=== PATIENT | female | born 1955 | race Caucasian/White ===

== ENCOUNTER 2018-09-10 09:41 | Inpatient (IN) | payer OTHER, MEDICARE ==
[~2018-09-10] VITALS: Ht 162.6 cm; Wt 71.2 kg
--- OUTSIDE RECORDS SUMMARY | 2018-09-10 09:45 | XMS REPORT | Clinical Summary ---
Author Author [facility] Address Unknown Phone Unavailable Care Team Providers Care Dumpcart Driver Name Role Phone Asked, No Pcp PCP Unavailable Allergies Active Allergy Reactions Severity Noted Date Comments Codeine Hives High 03/24/2018 And sOB Phenobarbital Low 03/25/2018 Hives Current Medications Prescription Sig. Disp. Refills Start End Date Status Date levothyroxine (SYNTHROID, Take 100 mcg by mouth Active LEVOXYL) 100 mcg tablet daily. FLUoxetine (PROzac) 20 MG Take 20 mg by mouth Active capsule daily. 2 tabs gabapentin (NEURONTIN) Take 300 mg by mouth Active 300 mg capsule nightly. 3 caps clonIDINE HCl (CATAPRES) Take 0.2 mg by mouth Active 0.2 MG tablet daily. montelukast (SINGULAIR) Take 10 mg by mouth Active 10 mg tablet nightly. simvastatin (ZOCOR) 80 MG Take 80 mg by mouth Active tablet nightly. omeprazole (PriLOSEC) 20 Take 20 mg by mouth Active MG capsule nightly. 2 tabs meloxicam (MOBIC) 15 mg Take 15 mg by mouth Active tablet nightly. nebivolol (BYSTOLIC) 20 Take 20 mg by mouth Active mg tablet daily. albuterol sulfate Take 2.5 mg by Active (PROVENTIL) 2.5 mg/0.5 mL nebulization daily as solution for nebulization needed for wheezing. ipratropium (ATROVENT) Take 500 mcg by Active 0.02 % nebulizer solution nebulization daily as needed for wheezing or shortness of breath. Active Problems Not on file Encounters Date Type Specialty Care Team Description 03/25/2018 Hospital Procedural Cardiology Ismael Cortez MD SVT (supraventricular Encounter tachycardia) 03/25/2018 Anesthesia Procedural Cardiology David Goetz, Victorina WOOD HEEL CEMENTER 03/25/2018 Procedure Pass Procedural Cardiology 03/25/2018 Surgery Procedural Cardiology Ismael Cortez MD Ep complete ep study w ablation svt -using Cryo [09413 (CPT)] after 09/09/2017 Family History Medical History Relation Name Comments Heart attack Father Diabetes Mother Relation Name Status Comments Father Alive Mother Social History Tobacco Use Types Packs/Day Years Used Date Never Smoker Smokeless Tobacco: Never Used Alcohol Use Drinks/Week oz/Week Comments No Sex Assigned at Date Recorded Not on file Last Filed Vital Signs Vital Sign Reading Time Taken Blood Pressure 94/50 03/25/2018 7:00 PM CDT Pulse 58 03/25/2018 6:00 PM CDT Temperature 35.6 C (96 F) 03/25/2018 3:15 PM CDT Respiratory Rate 15 03/25/2018 6:00 PM CDT Oxygen Saturation 97% 03/25/2018 6:00 PM CDT Inhaled Oxygen - - Concentration Weight 67.8 kg (149 lb 7 oz) 03/25/2018 8:49 AM CDT Height 162.6 cm (5' 4") 03/25/2018 8:49 AM CDT Body Mass Index 25.65 03/25/2018 8:49 AM CDT Plan of Treatment Not on file Procedures Procedure Name Priority Date/Time Associated Diagnosis Comments EP COMPLETE EP STUDY W Routine 03/25/2018 SVT (supraventricular Results for this ABLATION SVT 2:12 PM CDT tachycardia) procedure are in the results section. [place] AN ELECTIVE Routine 03/25/2018 SUPRAGLOTTIC AIRWAY 1:23 PM CDT Procedure Note - David Montgomery CRNA - 03/25/2018 1:23 PM CDT Airway Date/Time: 03/25/2018 1:17 PM Performed by: DAVID MONTGOMERY Authorized by: ANITA JOSHI Location: OR Urgency: Elective Difficult Airway: No Anesthesio logist: ANITA JOSHI Resident/C GABRIELLA/AA: DAVID MONTGOMERY Performed by: resident/C GABRIELLA/AA Preoxygena radha with 100% O2: Yes C-spine Precaution s Maintained Throughout : Yes Mask Ventilatio n: Easy mask Final Airway Type: Supraglott ic airway Final LMA: I-Gel LMA Size: 4 Number of Attempts at Approach: 1 Atraumati c intubation , teeth and lips intact, LMA secured via tape and connected to the OR vent. Patient tolerated intubation well. TYPE AND SCREEN STAT 03/25/2018 Results for this 9:24 AM CDT procedure are in the results section. after 09/09/2017 Results * Cv electrophysiology procedure (03/25/2018 2:12 PM) Narrative Performed At [facility] REASON FOR PROCEDURE: Paroxysmal supraventricular tachycardia PROCEDURES PERFORMED: 1. Catheter ablation for supraventricular tachycardia. 2. 3D catheter mapping. 3. Left atrial coronary sinus pacing and recording ANESTHESIA: MAC COMPLICATIONS:None. ESTIMATED BLOOD LOSS:10 mL. DESCRIPTION OF PROCEDURE: The patient was prepped in the usual sterile fashion. The right femoral vein was accessed x 3 and sheaths were advanced in the right femoral vein. A decapolar catheter was placed in the coronary sinus and quadripolar catheters were placed in the right ventricle, His and a decapolar catheter placed in the coronary sinus. At baseline, the patient was in sinus rhythm with a cycle length of 1100 milliseconds.HV 50ms and dual AV carline physiology was demonstrated.The fast pathway ERP was 360@600 ms. With extrastim we induced PSVT with a long AH interval.The SVT cycle length was 360 ms, and the 3D mapping demonstrated concentric atrial activation.The septal VA time was 0ms.Entrainment from the ventricle demonstrated a VAV response.This was diagnostic for typical AV carline reentry. The His catheter was exchanged for the 6mm tip cryoablation catheter and several lesions were administered at the slow pathway area resulting in elimination of slow AV pathway conduction.The catheters and sheaths were exchanged for short sheaths, which were pulled in holding area. CONCLUSIONS: 1. Typical AV carline reeentrant tachycardia. 2. Successful cryoablation of the slow AV pathway 3. There were no complications. Performing Organization Address City/State/Zipcode Phone Number [facility] [address] [place] [address] * Type and screen (03/25/2018 9:24 AM) ABO grouping O [facility] DEPARTMENT OF PATHOLOGY AND GENOMIC MEDICINE Rh type POS [facility] DEPARTMENT OF PATHOLOGY AND GENOMIC MEDICINE Antibody screen (gel) NEG [facility] DEPARTMENT OF PATHOLOGY AND GENOMIC MEDICINE Specimen Blood Performing Organization Address City/[facility]/Zipcode Phone Number [facility] DEPARTMENT OF [address] [place] [phone] PATHOLOGY AND GENOMIC MEDICINE after 09/09/2017 Insurance Payer Benefit Subscriber ID Type Phone Address Plan / Group AETNA AETNA xxxxxxxxxx HMO HMO,POS,EP O, MC/EC [id number] [id number]
[2018-09-10] MEDS ORDERED: VANCOMYCIN 1GM/NS 250 ML 250 ML IV ONE (10:30)
[2018-09-10 10:37] LABS: EOSINOPHILS # (AUTO) 0.2 (0.0-0.4); EOSINOPHILS % 5.8 % (0.0-6.0); HEMATOCRIT 38.4 % (34.2-44.1); HEMOGLOBIN 12.7 g/dL (12.0-16.0); LYMPHOCYTES # (AUTO) 1.3 (1.0-3.2); LYMPHOCYTES % 33.5 % (18.0-39.1); MEAN CORPUSCULAR HEMOGLOBIN 31.1 pg (28-32); MEAN CORPUSCULAR HGB CONC 33.1 g/dL (31-35); MEAN CORPUSCULAR VOLUME 94.1 fL (81-99); MONOCYTES # (AUTO) 0.5 (0.2-0.8); MONOCYTES % 13.4 % (4.4-11.3); NEUTROPHILS # (AUTO) 1.7 (2.1-6.9); NEUTROPHILS % 45.3 % (38.7-80.0); PLATELET COUNT 297 x10e3/uL (140-360); RED BLOOD COUNT 4.08 x10e6/uL (3.6-5.1); RED CELL DISTRIBUTION WIDTH 11.9 % (11.7-14.4)
[2018-09-10 10:59] LABS: ALBUMIN 4.3 g/dL (3.5-5.0); ALBUMIN/GLOBULIN RATIO 1.3 (0.8-2.0); ANION GAP 17.3 mmol/L (8-16); CALCIUM 9.6 mg/dL (8.4-10.2); CREATININE, SERUM 0.96 mg/dL (0.57-1.11); POTASSIUM 4.3 mmol/L (3.5-5.1)
[2018-09-10] MEDS ORDERED: GADOBENATE DIMEGLUMINE 1 ML IV ONE (11:07)
[2018-09-10] MEDS ORDERED: PRILOSEC OTC20 MG PO (11:08)
[2018-09-10] MEDS ORDERED: SENNA LAXATIVE8.6 MG PO (11:08)
[2018-09-10] MEDS ORDERED: SYNTHROID100 MCG PO (11:08)
[2018-09-10] MEDS ORDERED: PROZAC20 MG PO (11:08)
[2018-09-10] MEDS ORDERED: MELOXICAM7.5 MG PO (11:08)
[2018-09-10] MEDS ORDERED: MULTI-VITAMIN1 EACH PO (11:08)
[2018-09-10] MEDS ORDERED: BYSTOLIC10 MG PO (11:08)
[2018-09-10] MEDS ORDERED: SIMVASTATIN80 MG PO (11:08)
[2018-09-10] MEDS ORDERED: IPRATROPIU0.2 MG/1 M NEB (11:08)
[2018-09-10] MEDS ORDERED: MONTELUKAST SOD10 MG PO (11:08)
[2018-09-10] MEDS ORDERED: NEURONTIN300 MG PO (11:08)
[2018-09-10] MEDS ORDERED: OCUVITE TABLET1 EAC1 PO (11:08)
[2018-09-10] MEDS ORDERED: CLONIDINE HCL0.2 MG PO (11:08)
[2018-09-10] MEDS ORDERED: ALBUTEROL0.63 MG/3 INH (11:08)
[2018-09-10 11:24] LABS: ERYTHROCYTE SEDIMENTATION RATE 34 mm/hr (0-20)
--- OUTSIDE RECORDS SUMMARY | 2018-09-10 11:54 | XMS REPORT | Clinical Summary ---
Author Author [facility] Address Unknown Phone Unavailable Care Team Providers Care Person Investigator Name Role Phone Asked, No Pcp PCP [...] 03/25/2018 Anesthesia Procedural Cardiology David Goetz, Victorina RECEPTION AGENT 03/25/2018 Procedure Pass Procedural Cardiology 03/25/2018 Surgery Procedural Cardiology Ismael Cortez MD Ep complete ep study w ablation svt -using Cryo [31750 (CPT)] after 09/09/2017 Family History Medical History [...] tachycardia) procedure are in the results section. MS AN ELECTIVE Routine 03/25/2018 SUPRAGLOTTIC AIRWAY 1:23 [...] complications. Performing Organization Address City/State/Zipcode Phone Number [facility] [address] [place] [address] * Type and screen (03/25/2018 9:24 AM) ABO grouping O [facility] DEPARTMENT OF PATHOLOGY AND GENOMIC MEDICINE Rh type POS [facility] DEPARTMENT OF PATHOLOGY AND GENOMIC MEDICINE Antibody screen (gel) NEG [facility] DEPARTMENT OF PATHOLOGY AND GENOMIC MEDICINE Specimen Blood Performing Organization Address City/[facility]/Zipcode Phone Number [facility] DEPARTMENT OF [address] [place] [phone] PATHOLOGY AND GENOMIC MEDICINE after 09/09/2017 Insurance Payer Benefit Subscriber ID Type Phone Address Plan / Group AETNA AETNA xxxxxxxxxx HMO HMO,POS,EP O, MC/EC [id number] [id number]
[2018-09-10] MEDS ORDERED: DEXAMETHASONE SOD PHOS INJ 4 MG/ML VIAL ONE (12:37)
[2018-09-10] MEDS ORDERED: PROPOFOL IV EMULSION 10 MG/ML 20 ML VIAL ONE (12:37)
[2018-09-10] MEDS ORDERED: LIDOCAINE HCL 2% LOCAL INJ 5 ML SDV VIAL INJ ONE (12:37)
[2018-09-10] MEDS ORDERED: ONDANSETRON HCL INJ 2 MG/ML VIAL ONE (12:37)
[2018-09-10] MEDS ORDERED: DIPHENHYDRAMINE HCL INJ 50 MG/ML VIAL IV ONE (13:00)
[2018-09-10] MEDS: HYDROCODONE/APAP 10MG-325MG TAB PO PRN (13:14)
[2018-09-10] MEDS: CEFEPIME HCL 1 GM VIAL IV SCH ×2 (13:14→23:45)
--- NOTE | 2018-09-10 13:36 | Diagnostic Imaging Report ---
ADDENDUM #1 Right hand MRI with and without contrast. History: Recent surgery for small cyst removal 6 weeks ago. Osteomyelitis. Finger pain and swelling with redness. Comparison: None Technique: Multiplanar multisequence MRI of the right hand with and without intravenous contrast. 10 cc IV gadolinium contrast material was administered. Findings: There is abnormal soft tissue swelling/edema and abnormal contrast enhancement involving the distal aspect of the fourth finger. There is what may be a small skinfold on the palmar surface of the finger at the level of the middle portion of the middle phalanx. This is best seen on series 8 image 26. There may be a small underlying phlegmon/early abscess formation on the dorsal aspect of the fourth finger at the surgical site. There is bone marrow edema in the distal portion of the middle phalanx and in the proximal portion of the distal phalanx of the fourth finger as seen on sagittal image 6 and 7. This is worrisome for osteomyelitis. No ligamentous or tendon tear is seen. The visualized neurovascular bundles are intact. No acute fracture, dislocation or evidence of avascular necrosis. Impression: Findings consistent with cellulitis with possible small underlying phlegmon/early abscess formation on the dorsal aspect of the fourth finger at the surgical site. There is bone marrow edema at the distal aspect of the middle phalanx and proximal aspect of the distal phalanx worrisome for osteomyelitis. These findings were discussed with Dr. Lux by Dr. Browning on 09/15/2018 at 9:15 AM Signed by: Dr. Arron Browning M.D. on 09/15/2018 9:28 AM ORIGINAL REPORT Right hand MRI with and without contrast. History: Recent surgery for small cyst removal 6 weeks ago. Osteomyelitis. Finger pain and swelling with redness. Comparison: None Technique: Multiplanar multisequence MRI of the right hand with and without intravenous contrast. 10 cc IV gadolinium contrast material was administered. Findings: There is abnormal soft tissue swelling/edema and abnormal contrast enhancement involving the distal aspect of the fourth finger. There is an associated small skin defect on the palmar surface of the finger at the level of the middle portion of the middle phalanx. This is best seen on series 8 image 26. There is underlying phlegmon/early abscess formation measuring approximately 5.0 mm. There is bone marrow edema in the distal portion of the middle phalanx and in the rock small portion of the distal phalanx of the fourth finger as seen on sagittal image 6 and 7. This is worrisome for osteomyelitis. No ligamentous or tendon tear is seen. The visualized neurovascular bundles are intact. No acute fracture, dislocation or evidence of avascular necrosis. Impression: Findings consistent with cellulitis with small underlying phlegmon/early abscess formation on the palmar aspect of the fourth finger at the level of the distal portion of the middle phalanx. There is underlying bone marrow edema worrisome for osteomyelitis. Signed by: Dr. Arron Browning M.D. on 09/10/2018 1:33 PM
[2018-09-10 14:56] VITALS: BP 165/86
[2018-09-10 15:27] VITALS: BP 165/86
[2018-09-10 16:04] VITALS: BP 169/73
[2018-09-10] MEDS ORDERED: ACETAMINOPHEN 325 MG TAB PO PRN (16:30)
[2018-09-10] MEDS ORDERED: IPRATROPIUM BROMIDE 0.02% 2.5 ML NEB NEB PRN (16:45)
[2018-09-10] MEDS ORDERED: SODIUM CHLORIDE 0.9% 250ML 250 ML ONE (16:48)
--- NOTE | 2018-09-10 16:59 | Consultation ---
DATE OF CONSULTATION: September 10, 2018 INFECTIOUS DISEASE CONSULTATION REASON FOR CONSULTATION: Osteomyelitis of the right index finger. HISTORY OF PRESENT ILLNESS: This patient, who is a very pleasant 63-year-old female with history of hypertension, history of neuropathy, history of hypothyroidism, comes into the hospital. About a month or 6 weeks ago she had a lesion on her right index finger. She had a biopsy, but since then she has been having redness and swelling. She took oral antibiotic without any improvement. The patient went to see Dr. Lux. There was concern she has osteo. She was sent to the emergency room. In the emergency room she had an MRI which was positive for osteo. They plan for her to have surgery tomorrow with debridement in much of the joint. The patient, who is currently lying in bed comfortably, has no other complaints. PAST MEDICAL HISTORY: As above. PAST SURGICAL HISTORY: Denies. ALLERGIES: NKA. SOCIAL HISTORY: There is no smoking, drug abuse, alcohol use. FAMILY HISTORY: Otherwise unremarkable. REVIEW OF SYSTEMS: HEENT: Negative. PULMONARY: Negative. CARDIAC: Negative. : Negative. SKIN: There are no other rashes. ALL OTHER SYSTEMS: Within normal limits. LABORATORY DATA: White count 3.82. Hemoglobin 12. Hematocrit 38. Her sodium 140, potassium 4.3, creatinine 0.96. PHYSICAL EXAMINATION: GENERAL: She is currently alert, oriented, does not seem to be in acute distress. VITALS: Stable. Currently afebrile. HEENT: She does not appear icteric. NECK: Supple. CHEST: Clear. HEART: S1, S2. No S3, no S4, no murmur. ABDOMEN: Soft. Bowel sounds present. No tenderness. EXTREMITIES: No edema. The right index finger, there is erythema and edema on the end of the distal third. IMPRESSION: Osteomyelitis of the right index finger after a biopsy. Will put her on vancomycin 1 gram q.12. Will obtain sed rate and C-reactive protein. Obtain a PICC line. Will need 8 weeks of IV antibiotic, weekly CBC, weekly chem panel, weekly vancomycin trough. Discussed with the patient. Will follow with you. Discussed with Internal Medicine. Discussed with Dr. Lux. Job#: [id number] EV
[2018-09-10] MEDS: MORPHINE SULFATE INJ 4 MG/ML INJ IV PRN ×2 (17:03→22:11)
[2018-09-10] MEDS: VANCOMYCIN 1GM/NS 250 ML 250 ML IV SCH (17:29)
--- NOTE | 2018-09-10 17:31 | History and Physical ---
CHIEF COMPLAINT: Right finger pain concerning for osteomyelitis. HISTORY OF PRESENT ILLNESS: This is a 63-year-old female who reports over the last 1 month has been having worsening pain in the right ring finger that has been ongoing for a significant period of time. She reports she initially had a cyst that was there present and was eventually removed but with no scrapings and progressively got worse over time over the last 1 month. She reported to a plastic surgeon here, Dr. Lux, and was told to come to the ER for incision and drainage and further evaluation tomorrow on September 11, 2018. Patient is currently doing well with no issues. She is reporting that she has pain in the right finger. She has pain right now at the current moment. Patient denies any chest pain, palpitations, nausea, vomiting, or any fever. Patient seen and evaluated at bedside on the medical floor, currently doing well with no other complaints. She denies any trauma to the right finger or any infection in the past. REVIEW OF SYSTEMS PERTINENT POSITIVE: Right hand finger pain concerning for abscess and osteomyelitis. PERTINENT NEGATIVE: Denies chest pain, palpitations, nausea, vomiting, diarrhea, dysuria, hematuria, frequency, urgency, lightheadedness, dizziness, abdominal pain, headache, shortness of breath, cough, congestion, fever or any other complaints. REST OF 14-POINT REVIEW OF SYSTEMS: Have been reviewed with the patient and are negative. ALLERGIES: PHENOBARBITAL, CODEINE. HOME MEDICATIONS: She takes clonidine 0.2 mg at bedtime, albuterol 0.6 mg every 6 hours as needed for shortness of breath, furosemide 40 mg daily, gabapentin 300 mg 3 capsules at bedtime, Atrovent, Synthroid 100 mcg daily, Singulair 10 mg daily, multivitamin daily, 20 mg at bedtime, simvastatin 80 mg daily, omeprazole 20 mg daily. PAST MEDICAL HISTORY: Hypothyroidism, hyperlipidemia, seasonal allergies, depression, acid reflux. PAST SURGICAL HISTORY: None. FAMILY HISTORY: Hypertension, diabetes. SOCIAL HISTORY: No drugs, no alcohol, does not smoke. Good social support. She is . VITAL SIGNS: Temperature is 96.7, pulse 50, respiratory rate is 18, blood pressure is 169/73, pulse ox 94% on room air. LAB FINDINGS: Show white count 3.8, hemoglobin 12.7, hematocrit is 38, platelets of 297. CHEMISTRY: Sodium 140, potassium 4.3, chloride 105, bicarb 22, anion gap of 17, BUN is 14, creatinine 0.96, glucose 82, calcium 9.6. Total bilirubin is 0.5, AST 31, ALT 25, alk phos 77. Total protein 7.7, albumin is 4.3. IMAGING STUDIES: Hand MRI findings consistent with cellulitis with small underlying phlegmon, early abscess formation on the palmar aspect of the 4th finger at the level of the distal portion of the middle phalanx. There is also underlying bone edema worrisome for osteomyelitis. PHYSICAL EXAMINATION GENERAL: Not in acute distress. Alert, oriented x3, cooperative on examination. HEENT: Head: Normocephalic, atraumatic. Eyes: Pupils equally round and reactive to light bilaterally. Extraocular movements intact bilaterally. Neck was supple with good range of motion. Throat: No evidence of any erythema or exudates in the posterior pharynx. Has poor dentition. PULMONARY: Clear to auscultation bilaterally. No wheezing, no rales, no rhonchi, no crackles appreciated. CARDIOVASCULAR: Positive S1/S2. No murmurs, rubs or gallops appreciated. ABDOMEN: Soft, nondistended, nontender to palpation. Bowel sounds present. MUSCULOSKELETAL: Strength is 5/5 throughout. No evidence of any musculoskeletal deficit on examination. No weakness appreciated. NEUROLOGICAL: Cranial nerves 2-12 grossly intact. No evidence of any neurological deficit on exam. SKIN: Intact. Warm to touch. Good capillary refill. PSYCHIATRIC: Normal affect and mood. EXTREMITIES: She has erythema on the 4th finger of the right hand which is tender to palpation . IMPRESSION 1. Right 4th digit of the hand concerning for osteomyelitis and abscess. 2. Hypertension. 3. Hyperlipidemia. 4. Chronic pain. 5. Prophylaxis. PLAN: At this time ID and Hand Surgery were consulted. Patient will be n.p.o. after midnight. She is on IV antibiotics per ID recommendations. She will likely get an incision and drainage tomorrow. We are going to put her on pain control, resume same home medications. Blood pressure is slightly elevated, which I am going to adjust accordingly here shortly while in the hospital. Will also continue the pain control with no changes. Lovenox for DVT prophylaxis. Job#: [id number] EV
[2018-09-10 20:23] VITALS: BP 136/74
[2018-09-10] MEDS ORDERED: OMEPRAZOLE MAGNESIUM PO SCH (21:00)
[2018-09-10] MEDS ORDERED: CLONIDINE HCL 0.2 MG TAB PO SCH (21:00)
[2018-09-10] MEDS ORDERED: SENNOSIDES 8.6 MG TAB PO SCH (21:00)
[2018-09-10] MEDS: CLONIDINE HCL 0.2 MG TAB PO SCH (21:56)
[2018-09-10] MEDS: NEBIVOLOL 10 MG TAB PO SCH (21:56)
[2018-09-10] MEDS: SENNOSIDES 8.6 MG TAB PO SCH (21:57)
[2018-09-10] MEDS: SIMVASTATIN 80 MG TAB PO SCH (21:58)
--- NOTE | 2018-09-10 22:01 | Diagnostic Imaging Report ---
EXAMINATION: CHEST XRAY LINE PLACEMENT INDICATION: PICC line placement. COMPARISON: None FINDINGS: TUBES and LINES: Left upper extremity PICC line is visualized with distal tip overlying the mid SVC. LUNGS: Lungs are well inflated. Lungs are clear. There is mild prominence of the central pulmonary vasculature, consistent with pulmonary venous congestion. PLEURA: No pleural effusion or pneumothorax. HEART AND MEDIASTINUM: The cardiomediastinal silhouette is unremarkable. BONES AND SOFT TISSUES: No acute osseous lesion. Soft tissues are unremarkable. UPPER ABDOMEN: No free air under the diaphragm. IMPRESSION: No acute thoracic abnormality. Left upper extremity PICC line in good position with tip at the mid SVC Signed by: Dr. Kristofer Perez M.D. on 09/10/2018 9:57 PM
[2018-09-10] MEDS: MONTELUKAST SODIUM 10 MG TAB PO SCH (22:11)
[2018-09-11] VITALS (7 sets, daily range): BP systolic 104–170; BP diastolic 54–84
[2018-09-11] MEDS: VANCOMYCIN 1GM/NS 250 ML 250 ML IV SCH ×2 (04:30→17:38)
[2018-09-11] MEDS: MORPHINE SULFATE INJ 4 MG/ML INJ IV PRN ×2 (04:42→12:37)
[2018-09-11 05:35] LABS: BASOPHILS % 0.5 % (0.0-1.0); EOSINOPHILS # (AUTO) 0.2 (0.0-0.4); EOSINOPHILS % 4.3 % (0.0-6.0); HEMATOCRIT 32.8 % (34.2-44.1); HEMOGLOBIN 10.8 g/dL (12.0-16.0); LYMPHOCYTES # (AUTO) 0.9 (1.0-3.2); LYMPHOCYTES % 20.6 % (18.0-39.1); MEAN CORPUSCULAR HEMOGLOBIN 30.9 pg (28-32); MEAN CORPUSCULAR HGB CONC 32.9 g/dL (31-35); MEAN CORPUSCULAR VOLUME 93.7 fL (81-99); MONOCYTES # (AUTO) 0.5 (0.2-0.8); MONOCYTES % 12.1 % (4.4-11.3); NEUTROPHILS # (AUTO) 2.6 (2.1-6.9); NEUTROPHILS % 61.8 % (38.7-80.0); PLATELET COUNT 221 x10e3/uL (140-360); RED CELL DISTRIBUTION WIDTH 11.9 % (11.7-14.4)
[2018-09-11 05:54] LABS: ANION GAP 14.9 mmol/L (8-16); BLOOD UREA NITROGEN 11 mg/dL (7-26); BUN/CREATININE RATIO 14 (6-25); CALCIUM 8.7 mg/dL (8.4-10.2); CARBON DIOXIDE 24 mmol/L (22-29); CHLORIDE 105 mmol/L (98-107); EST GLOMERULAR FILTRATION RATE > 60 ML/MIN (60-); GLUCOSE 98 mg/dL (74-118); POTASSIUM 3.9 mmol/L (3.5-5.1); SODIUM 140 mmol/L (136-145)
[2018-09-11] MEDS: LEVOTHYROXINE SODIUM 100 MCG TAB PO SCH (06:00)
[2018-09-11] MEDS ORDERED: BACITRACIN ZINC 15 GM OINT ONE (06:32)
[2018-09-11] MEDS ORDERED: BUPIVACAINE HCL 0.5% INJ 30 ML VIAL INJ ONE (06:33)
[2018-09-11] MEDS ORDERED: MUPIROCIN 2% OINT 22 GM TUBE ONE (06:33)
[2018-09-11] MEDS ORDERED: BACITRACIN 50,000 UNIT VIAL ONE ×2 (06:33→07:00)
[2018-09-11] MEDS ORDERED: BUPIVACAINE 0.25% 30ML SDV INJ ONE (06:33)
[2018-09-11] MEDS ORDERED: PANTOPRAZOLE SOD 40 MG TABEC PO SCH (07:30)
[2018-09-11] MEDS: MULTIVITAMINS/MINERALS TAB PO SCH (09:31)
[2018-09-11] MEDS: FLUOXETINE HCL 20 MG CAP PO SCH (09:31)
[2018-09-11] MEDS: OCUVITE PRESERVISION TABLET PO SCH (09:31)
[2018-09-11] MEDS: AMLODIPINE BESYLATE 10 MG TAB PO SCH (09:31)
[2018-09-11] MEDS: CEFEPIME HCL 1 GM VIAL IV SCH ×2 (12:25→23:47)
[2018-09-11] MEDS ORDERED: FENTANYL CITRATE/PF 100MCG/2 ML INJ ONE (12:41)
[2018-09-11] MEDS ORDERED: MIDAZOLAM HCL 2 MG/2 ML VIAL ONE (12:41)
--- NOTE | 2018-09-11 15:28 | Progress Note ---
DATE: September 11, 2018 SUBJECTIVE: Patient underwent an incision and drainage of her right hand 4th digit today by plastic surgery. ID was consulted as well. PICC line has been placed. Patient will need long-term IV antibiotics for about 8 weeks. Patient is currently doing well. Her pain is well controlled. OBJECTIVE VITAL SIGNS: Temperature 97.1, pulse 63, respiratory rate is 18, blood pressure 156/70, pulse ox 92% on nasal cannula. LAB FINDINGS: Show a white count is 4.2, hemoglobin 10.8, hematocrit is 33, and platelets of 221. Chemistry; sodium 140, potassium 3.9, chloride 105, bicarb 24, anion gap of 14, BUN is 11, creatinine is 0.8, calcium is 8.7, and glucose 98. CRP is pending. Albumin 4.3. MICROBIOLOGY: Wound cultures are pending. IMAGING STUDIES: None. PHYSICAL EXAMINATION GENERAL: Not in acute distress, alert and oriented x3, cooperative on examination. HEENT: Head normocephalic, atraumatic. Eyes; pupils are equal, round, and reactive to light bilaterally. Extraocular movements are intact bilaterally. NECK: Supple with good range of motion. THROAT: No evidence of any erythema or exudates in the posterior pharynx, has poor dentition. PULMONARY: Clear to auscultation bilaterally. No wheezing, no rales, no rhonchi, no crackles appreciated. CARDIOVASCULAR: Positive S1 and S2. No murmurs, rubs, or gallops appreciated. ABDOMEN: Soft, nondistended, nontender to palpation. Bowel sounds present. MUSCULOSKELETAL: Strength is 5/5 throughout. No evidence of any musculoskeletal deficit on examination. No weakness appreciated. NEUROLOGICAL: Cranial nerves II through XII grossly intact. No evidence of any neurological deficit on exam. SKIN: Intact. Warm to touch. Good capillary refill. PSYCHIATRIC: Normal affect and mood. EXTREMITIES: No edema. Good range of motion throughout. IMPRESSION 1. Right hand 4th digit concerns for osteomyelitis and abscess, status post incision and drainage performed on September 11, 2018. 2. Hypertension. 3. Hyperlipidemia. 4. Chronic pain. 5. Prophylaxis. PLAN: Patient had an incision and drainage today on September 11, [address] Lux, hand surgery. Patient now has a PICC line in the left upper extremity. We are waiting for wound cultures. Patient will need 8 weeks of IV antibiotics. Her pain is well controlled. Once the wound cultures are back, we will determine the identification or sensitivities. Patient will be able to be discharged. We will try to arrange IV antibiotics in ID clinic versus home with home health, which I will discuss with ID. Continue with Lovenox for DVT prophylaxis. Job#: [id number] NISA
[2018-09-11] MEDS: ENOXAPARIN SOD INJ 40 MG/0.4 ML SYR SC SCH (17:09)
[2018-09-11] MEDS: NEBIVOLOL 10 MG TAB PO SCH (20:11)
[2018-09-11] MEDS: SIMVASTATIN 80 MG TAB PO SCH (20:12)
[2018-09-11] MEDS: SENNOSIDES 8.6 MG TAB PO SCH (20:12)
[2018-09-11] MEDS: MONTELUKAST SODIUM 10 MG TAB PO SCH (20:12)
[2018-09-11] MEDS: CLONIDINE HCL 0.2 MG TAB PO SCH (20:12)
[2018-09-11] MEDS: PANTOPRAZOLE SOD 40 MG TABEC PO SCH (20:12)
[2018-09-11] MEDS: ONDANSETRON HCL INJ 2 MG/ML VIAL IV PRN (21:55)
[2018-09-12] VITALS: BP 147/72
[2018-09-12] MEDS: VANCOMYCIN 1GM/NS 250 ML 250 ML IV SCH ×2 (03:44→16:39)
[2018-09-12 04:00] VITALS: BP 151/72
[2018-09-12] MEDS: LEVOTHYROXINE SODIUM 100 MCG TAB PO SCH (05:01)
[2018-09-12] MEDS: MORPHINE SULFATE INJ 4 MG/ML INJ IV PRN ×3 (05:02→22:41)
[2018-09-12] MEDS: HYDROCODONE/APAP 10MG-325MG TAB PO PRN ×2 (06:16→19:12)
[2018-09-12 07:46] VITALS: BP 138/78
[2018-09-12] MEDS: AMLODIPINE BESYLATE 10 MG TAB PO SCH (08:42)
[2018-09-12] MEDS: MULTIVITAMINS/MINERALS TAB PO SCH (08:42)
[2018-09-12] MEDS: FLUOXETINE HCL 20 MG CAP PO SCH (08:42)
[2018-09-12] MEDS: OCUVITE PRESERVISION TABLET PO SCH (08:42)
[2018-09-12 11:30] VITALS: BP 115/61
[2018-09-12] MEDS: CEFEPIME HCL 1 GM VIAL IV SCH ×2 (11:43→23:15)
--- NOTE | 2018-09-12 15:31 | Progress Note ---
DATE: September 12, 2018 MEDICINE PROGRESS NOTE SUBJECTIVE: Patient is doing well today with no complaints. She is currently sitting in the chair. The pain is well controlled. VITAL SIGNS: Temperature is 96.6, pulse is 60, respiratory rate is 18, blood pressure is 115/61, pulse ox 94% on room air. LAB FINDINGS: Show white count is 4.2, hemoglobin is 10.8, hematocrit is 32.8, platelets are 221. Chemistries: Sodium 140, potassium 3.9, chloride 105, bicarb 24, anion gap of 14, BUN is 11, creatinine is 0.8, glucose is 98, calcium is 8.7. MICROBIOLOGY: Wound cultures, no growth after one day. PHYSICAL EXAMINATION GENERAL: Not in acute distress, alert and oriented x3, cooperative on examination. HEENT: Head normocephalic, atraumatic. Eyes: Pupils equal, round and reactive to light bilaterally. Extraocular movements intact bilaterally. NECK: Supple with good range of motion. THROAT: No evidence of erythema or exudates in the posterior pharynx, has poor dentition. PULMONARY: Clear to auscultation bilaterally. No wheezing, no rales, no rhonchi, no crackles appreciated. CARDIOVASCULAR: Positive S1 and S2. No murmurs, rubs, or gallops appreciated. ABDOMEN: Soft, nondistended, nontender to palpation. Bowel sounds present. MUSCULOSKELETAL: Strength is 5/5 throughout. No evidence of any musculoskeletal deficit on examination. No weakness appreciated. NEUROLOGIC: Cranial nerves II through XII grossly intact. No evidence of neurological deficit on exam. SKIN: Intact. Warm to touch. Good capillary refill. PSYCHIATRIC: Normal affect and mood. EXTREMITIES: No edema. Good range of motion throughout. IMPRESSION 1. Right hand 4th digit concern for osteomyelitis and abscess, status post incision and drainage performed on September 11, 2018. 2. Hypertension. 3. Hyperlipidemia. 4. Chronic pain. 5. Prophylaxis. PLAN: At this time, patient is status post I and D performed on September 11, [address] Lux, hand surgery. She currently has a PICC line. Wound cultures, no growth today. She will need 8 weeks of IV antibiotics, which case management ordered already. Antibiotics will be arranged at the ID clinic with Dr. Rocha and even if it is not, we will have to try home health with home IV antibiotics. Continue with Lovenox for DVT prophylaxis. Get a.mDebi navarrete. Job#: [id number] MARLEN
[2018-09-12 15:58] VITALS: BP 144/75
[2018-09-12] MEDS: ENOXAPARIN SOD INJ 40 MG/0.4 ML SYR SC SCH (16:39)
[2018-09-12] MEDS: ONDANSETRON HCL INJ 2 MG/ML VIAL IV PRN (17:44)
[2018-09-12 20:00] VITALS: BP 158/82
[2018-09-12] MEDS: SENNOSIDES 8.6 MG TAB PO SCH (20:14)
[2018-09-12] MEDS: MONTELUKAST SODIUM 10 MG TAB PO SCH (20:14)
[2018-09-12] MEDS: PANTOPRAZOLE SOD 40 MG TABEC PO SCH (20:14)
[2018-09-12] MEDS: SIMVASTATIN 80 MG TAB PO SCH (20:14)
[2018-09-12] MEDS: CLONIDINE HCL 0.2 MG TAB PO SCH (20:38)
[2018-09-12] MEDS: NEBIVOLOL 10 MG TAB PO SCH (20:38)
[2018-09-13] VITALS (9 sets, daily range): BP systolic 102–180; BP diastolic 51–87
[2018-09-13] MEDS: HYDROCODONE/APAP 10MG-325MG TAB PO PRN ×2 (01:43→08:15)
[2018-09-13] MEDS: VANCOMYCIN 1GM/NS 250 ML 250 ML IV SCH ×2 (03:37→16:30)
[2018-09-13] MEDS: LEVOTHYROXINE SODIUM 100 MCG TAB PO SCH (05:24)
[2018-09-13] MEDS: MULTIVITAMINS/MINERALS TAB PO SCH (08:15)
[2018-09-13] MEDS: AMLODIPINE BESYLATE 10 MG TAB PO SCH (08:15)
[2018-09-13] MEDS: FLUOXETINE HCL 20 MG CAP PO SCH (08:15)
[2018-09-13] MEDS: OCUVITE PRESERVISION TABLET PO SCH (08:15)
[2018-09-13] MEDS: MORPHINE SULFATE INJ 4 MG/ML INJ IV PRN (10:34)
[2018-09-13] MEDS: ONDANSETRON HCL INJ 2 MG/ML VIAL IV PRN ×2 (10:34→17:34)
[2018-09-13] MEDS ORDERED: SODIUM CHLORIDE 0.9% 50ML 50 ML ONE (11:35)
[2018-09-13] MEDS: CEFEPIME HCL 1 GM VIAL IV SCH (12:54)
--- NOTE | 2018-09-13 15:40 | Progress Note ---
DATE: September 13, 2018 MEDICINE PROGRESS NOTE SUBJECTIVE: Patient is doing well today with no other complaints. We are waiting for IV antibiotics to be insurance approved. Case Management is working on getting the approved via home health. OBJECTIVE VITAL SIGNS: Temperature is 97.1, pulse 60, respiratory rate is 19, blood pressure is 131/75, pulse ox 96% on room air. LAB FINDINGS: None. MICROBIOLOGY: Wound cultures no growth. IMAGING STUDIES: None. PHYSICAL EXAMINATION GENERAL: Not in acute distress. Alert, oriented x3, cooperative on examination. HEENT: Head: Normocephalic, atraumatic. Eyes: Pupils equally round and reactive to light bilaterally. Extraocular movements intact bilaterally. Neck was supple with good range of motion. Throat: No evidence of any erythema or exudates in the posterior pharynx. Has poor dentition. PULMONARY: Clear to auscultation bilaterally. No wheezing, no rales, no rhonchi, no crackles appreciated. CARDIOVASCULAR: Positive S1/S2. No murmurs, rubs or gallops appreciated. ABDOMEN: Soft, nondistended, nontender to palpation. Bowel sounds present. MUSCULOSKELETAL: Strength is 5/5 throughout. No evidence of any musculoskeletal deficit on examination. No weakness appreciated. NEUROLOGICAL: Cranial nerves 2-12 grossly intact. No evidence of any neurological deficit on exam. SKIN: Intact. Warm to touch. Good capillary refill. PSYCHIATRIC: Normal affect and mood. EXTREMITIES: No edema. Good range of motion throughout. IMPRESSION 1. Right hand 4th digit concern for osteomyelitis and abscess status post incision and drainage performed on September 11, 2018. 2. Hypertension. 3. Hyperlipidemia. 4. Chronic pain. 5. Prophylaxis. PLAN: At this time patient had an I&D performed on September 11, 2018, by Dr. Lux, hand surgery. She is doing well today. She has a PICC line. ID is following. Wound culture shows no growth. We are arranging for home health with home IV antibiotics, and hopefully she will be able to get that today for discharge. Otherwise she will be here through tomorrow. Job#: [id number] EV
[2018-09-13] MEDS: ENOXAPARIN SOD INJ 40 MG/0.4 ML SYR SC SCH (16:46)
[2018-09-13] MEDS ORDERED: HYDRALAZINE HCL 20 MG/ML VIAL IV PRN (20:30)
[2018-09-13] MEDS ORDERED: PROMETHAZINE 25MG/ NS 50ML (IV) IV PRN (20:30)
[2018-09-13] MEDS: SENNOSIDES 8.6 MG TAB PO SCH (21:00)
[2018-09-13] MEDS: SIMVASTATIN 80 MG TAB PO SCH (21:00)
[2018-09-13] MEDS ORDERED: MORPHINE SULFATE 2 MG/ML SYR IV PRN (21:00)
[2018-09-13] MEDS: MONTELUKAST SODIUM 10 MG TAB PO SCH (21:00)
[2018-09-13] MEDS: NEBIVOLOL 10 MG TAB PO SCH (21:00)
[2018-09-13] MEDS: CLONIDINE HCL 0.2 MG TAB PO SCH (21:00)
[2018-09-13] MEDS: PANTOPRAZOLE SOD 40 MG TABEC PO SCH (21:00)
[2018-09-14] VITALS: BP 125/65
[2018-09-14] MEDS: CEFEPIME HCL 1 GM VIAL IV SCH ×2 (00:05→12:26)
[2018-09-14 04:00] VITALS: BP 135/80
[2018-09-14] MEDS: LEVOTHYROXINE SODIUM 100 MCG TAB PO SCH (06:58)
[2018-09-14 08:00] VITALS: BP 135/80
[2018-09-14] MEDS: ONDANSETRON HCL INJ 2 MG/ML VIAL IV PRN (08:00)
[2018-09-14] MEDS: HYDROCODONE/APAP 10MG-325MG TAB PO PRN (08:00)
[2018-09-14] MEDS: MULTIVITAMINS/MINERALS TAB PO SCH (08:19)
[2018-09-14] MEDS: FLUOXETINE HCL 20 MG CAP PO SCH (08:19)
[2018-09-14] MEDS: AMLODIPINE BESYLATE 10 MG TAB PO SCH (08:19)
[2018-09-14] MEDS: OCUVITE PRESERVISION TABLET PO SCH (08:19)
[2018-09-14 08:25] VITALS: BP 140/92
[2018-09-14] MEDS ORDERED: VANCOMYCIN HCL 1 GM in SODIUM CHLORIDE 0.9% 250ML 250 ML IV SCH (09:00)
[2018-09-14] MEDS ORDERED: VANCOMYCIN 1GM/NS 250 ML 250 ML IV SCH (09:00)
[2018-09-14] MEDS ORDERED: SODIUM CHLORIDE 0.9% 50ML 50 ML ONE (11:40)
[2018-09-14 12:00] VITALS: BP 120/74
[2018-09-14] MEDS ORDERED: ZOFRAN ODT4 MG SL (13:14)
[2018-09-14] MEDS ORDERED: TYLENOL # 31 EA PO (13:15)
--- NOTE | 2018-09-14 16:15 | Discharge Summary ---
FINAL DISCHARGE DIAGNOSES 1. Right hand 4th digit status post incision and drainage with underlying osteomyelitis that was performed on September 11, 2018. 2. Hypertension. 3. Hyperlipidemia. 4. Chronic pain. CONSULTANTS: Plastic surgery, infectious disease. VITAL SIGNS: Temperature is 98.7. Blood pressure 140/92, respiratory rate 18, pulse 67, satting 100% on room air. LAB FINDINGS: Show white count 4.2, hemoglobin 10.8 Hematocrit 32.8, platelets of 221,000. Chemistry: Sodium 140, potassium 3.9, chloride 105, bicarb 24, anion gap of 14, BUN , creatinine . LFTs were normal. Total protein 7.7 albumin 4.3. MICROBIOLOGY: Wound culture showed no growth. IMAGING STUDIES: MRI of the hand shows findings consistent with cellulitis with small underlying phlegmon, early abscess formation of the palmar aspect of the 4th digit at the level of the distal 4th . There is underlying bone mineral edema worrisome for osteomyelitis. PICC line placement. HOSPITAL COURSE: This is a 63-year-old female who came in with a right 4th digit swelling concerning for underlying abscess. Patient was sent in by her plastic surgeon for further evaluation and care. Patient underwent an incision and drainage on 09/11/2018 by plastic surgery. ID was consulted as well. Patient was on broad spectrum IV antibiotics. MRI of the hand was consistent with concerns for osteomyelitis. Patient had a PICC line placed and will need 8 weeks of IV vancomycin as per ID recommendations. Patient had local wound debridement and improved throughout the hospital course. The patient also had some underlying nausea and vomiting and she was given antinausea medication which improved tremendously. Patient was tolerating diet prior to discharge home. She denies any chest pain, palpitations, shortness of breath, cough, congestion or any other complaints prior to discharge. On the day of discharge, vital signs stable. Patient was seen and evaluated and examined thoroughly on the day of discharge with no other complaints. Patient verbalized understanding and agrees with the plan of care to follow up accordingly as an outpatient with the primary care physician in 1 week and plastic surgery in 1 to 2 weeks' time as well as ID in 1 to 2 weeks' time to monitor on the infection of the 4th digit of the right hand. MEDICATIONS: See med reconciliation form including the vancomycin 1 gram q.24 h. for a total week with followup with the ID clinic in terms of her antibiotics and labs. DISPOSITION: To home. CONDITION: Stable. DIET: Heart healthy. In the event of any worsening symptoms, the patient was advised to come back to the ED for further evaluation. Discharge summary took greater than 35 minutes. SMOOTH FRANKS MD Job#: [id number]
--- NOTE | 2018-09-15 12:54 | Operative Report ---
DATE OF PROCEDURE: September 11, 2018 PREOPERATIVE DIAGNOSES 1. Septic arthritis right ring finger distal interphalangeal joint. 2. Osteomyelitis right ring finger. POSTOPERATIVE DIAGNOSES 1. Septic arthritis right ring finger distal interphalangeal joint. 1. Osteomyelitis right ring finger. PROCEDURES PERFORMED 1. Excision of mucous cyst right ring finger distal interphalangeal joint. 2. Arthrotomy with drainage of right ring finger distal interphalangeal joint. ANESTHESIA: General. HISTORY: The patient is a 63-year-old female who several weeks ago underwent a shave biopsy of a mucous cyst of the right ring finger distal interphalangeal joint by the dermatology service. Several weeks later, the patient developed redness, pain and swelling in the finger, and Dermatology referred the patient to my office. The patient was initially started on oral Keflex 500 milligrams p.o. q.i.d. for 1 week. She followed up, and her finger was noted to be more swollen and painful, and she was sent to the emergency room for urgent admission. The workup included an MRI which showed the presence of early osteomyelitis of both the distal and middle phalanges of the right ring finger. The patient is now being taken to the OR for decompression of the right ring finger distal interphalangeal joint. Risks, benefits and alternatives of treatment were discussed with the patient. She is prepared to undergo the procedures outlined. DETAILS OF PROCEDURE: Patient was marked preoperatively in the holding area. She was brought to the operating theater, and after the induction of adequate general anesthesia she was prepped and draped in a supine position. A time out was performed. An inverted Y incision was marked out over the DIP joint of the right ring finger distal interphalangeal joint. The extremity was elevated for 4 minutes, and then a tourniquet was inflated to a pressure of 250 mmHg. The incision was made through the skin and subcutaneous tissues, and purulent exudate was encountered and this was cultured both aerobically and anaerobically. At this point, the skin flaps were elevated off the extensor tendon mechanism, and the cyst was identified sitting directly on top of the extensor tendon. The cyst was traced around the ulnar side of the extensor tendon mechanism, and then the tendon was lifted up and the cyst and its communicating stalk of the distal interphalangeal joint were excised in total. With the joint open, the joint was then irrigated with an antibiotic-containing solution. At this point, the wound was packed with 1/4 inch packing, and then the skin was closed loosely over the packing with 5-0 nylon in an interrupted horizontal mattress fashion. A Marcaine field block was performed at the base of the right ring finger, the tourniquet was deflated, the finger pinked up nicely and the wound was noted to be hemostatic. A sterile bulking conforming bandage was applied as well as a foam aluminum splint for protection. The patient tolerated the procedure well and was brought to the recovery room in satisfactory condition and then transferred back to her hospital bed for further care and treatment. Job#: [id number] EV
== END 2018-09-14 15:03 | disposition home health service (06) | DRG 854 ==
LOC: ER 09:41 → ERHOLD 11:51 → OBSVTOIN 11:51 → MED/SURG3 14:29
PROVIDERS: ADMIT Internal Medicine; ATTEND Internal Medicine
PROC: 0RBW0ZZ Excision of Right Finger Phalangeal Joint, Open Approach (ICD-10-PCS; 2018-09-11)
PROC: 02HV33Z Insertion of Infusion Device into Superior Vena Cava, Percutaneous Approach (ICD-10-PCS; 2018-09-11)
PROC: 0R9W0ZZ Drainage of Right Finger Phalangeal Joint, Open Approach (ICD-10-PCS; principal; 2018-09-11 07:00)
DX: A41.9 Sepsis, unspecified organism (principal); M86.8X4 Other osteomyelitis, hand; L02.511 Cutaneous abscess of right hand; M00.9 Pyogenic arthritis, unspecified; I10 Essential (primary) hypertension; M25.841 Other specified joint disorders, right hand; E78.5 Hyperlipidemia, unspecified; G89.29 Other chronic pain; Z83.3 Family history of diabetes mellitus; Z82.49 Family history of ischemic heart disease and other diseases of the circulatory system; Z88.5 Allergy status to narcotic agent; Z88.8 Allergy status to other drugs, medicaments and biological substances; E03.9 Hypothyroidism, unspecified; K21.9 Gastro-esophageal reflux disease without esophagitis; G62.9 Polyneuropathy, unspecified; R11.2 Nausea with vomiting, unspecified
CPT/HCPCS: 36415; 36569; 71045; 80048; 80053; 80202; 85025; 85651; 86140; 87071; 87075; 87205; 88304; 99284; J0360; J0692; J1100; J1200; J1650; J2001; J2250; J2270; J2405; J2550; J3370; J7050

== ENCOUNTER → 2018-10-22 | Outpatient (CLI) | payer OTHER, MEDICARE ==
[~2018-10-22] MED LIST: ALBUTEROL0.63 MG/3 INH; BYSTOLIC10 MG PO; CLONIDINE HCL0.2 MG PO; IPRATROPIU0.2 MG/1 M NEB; MELOXICAM7.5 MG PO; MONTELUKAST SOD10 MG PO; MULTI-VITAMIN1 EACH PO; NEURONTIN300 MG PO; OCUVITE TABLET1 EAC1 PO; PRILOSEC OTC20 MG PO; PROZAC20 MG PO; SENNA LAXATIVE8.6 MG PO; SIMVASTATIN80 MG PO; SYNTHROID100 MCG PO; TYLENOL # 31 EA PO; ZOFRAN ODT4 MG SL
--- NOTE | 2018-10-22 11:26 | Diagnostic Imaging Report ---
Right hand MRI without contrast. History: Osteomyelitis of the ring finger. Prior surgery. Infection Comparison: MRI 09/10/2018 Technique: Multiplanar multisequence MRI of the right hand without contrast. Findings: There is mild abnormal soft tissue swelling/edema involving the distal aspect of the fourth finger. This has decreased when compared with the prior exam. No associated phlegmon/abscess formation is seen at the surgical site. There is mild bone marrow edema in the distal portion of the middle phalanx and in the proximal portion of the distal phalanx of the fourth finger as seen on sagittal image 9 and 10. This has decreased when compared with the prior exam and is still slightly concerning for osteomyelitis. No ligamentous or tendon tear is seen. The visualized neurovascular bundles are intact. No acute fracture, dislocation or evidence of avascular necrosis. Impression: Findings consistent with improved cellulitis. No associated phlegmon/abscess is seen. There is bone marrow edema at the distal aspect of the fourth middle phalanx and proximal aspect of the distal phalanx which has decreased when compared with the prior exam and is still slightly concerning for osteomyelitis. Signed by: Dr. Arron Browning M.D. on 10/22/2018 11:22 AM
== END ==
LOC: MRI 09:30
PROVIDERS: ATTEND Internal Medicine Infectious Disease
DX: M86.8X4 Other osteomyelitis, hand (principal)

== ENCOUNTER → 2020-04-06 | Outpatient (CLI) | payer MEDICARE, OTHER ==
[~2020-04-06] MED LIST changes: +GADOBENATE DIMEGLUMINE 1 ML IV ONE
[2020-04-06 13:36] LABS: CREATININE, SERUM 0.98 mg/dL (0.57-1.11)
--- NOTE | 2020-04-06 15:51 | Diagnostic Imaging Report ---
TECHNIQUE: Magnetic resonance imaging of the RIGHT HAND was performed without and with injected contrast. 14 cc of MultiHance HISTORY: Pain and swelling, evaluate for osteomyelitis COMPARISON: October 22, 2018 FINDINGS: Soft tissue marker placed over the dorsal aspect of the ring finger distally. No acute fracture. No significant bone marrow edema. Mild signal abnormality involving the middle phalanx and distal phalanx about the DIP joint. Joint space narrowing involving the DIP joint The remainder of the bone marrow signal is normal. No fluid collections or masses. The flexor and extensor tendons are intact. IMPRESSION: Post infectious sequela of the middle/distal phalanx and DIP joint ring finger. No acute osteomyelitis Signed by: Dr. Oliver Pérez M.D. on 04/06/2020 3:47 PM
== END ==
LOC: MRI 12:44
PROVIDERS: ATTEND Plastic Surgery
DX: M79.641 Pain in right hand (principal); M79.89 Other specified soft tissue disorders
CPT/HCPCS: 36415; 82565; 84520